=== PATIENT | female | born 1960 | race Caucasian/White ===

== ENCOUNTER → 2020-03-03 | Day surgery (SDC) | payer OTHER ==
[~2020-03-03] MED LIST: CANNABIS PO; ENDOMETRIN100 MG PO; ESTRADIOL PO; MIRALAX PO; NEURONTIN300 MG PO; PERCOCET 5-3251 EACH PO; RECTICARE30 GM TOP; VITAMIN B COMPLEX PO; VITAMIN C1000 M2 PO; VITAMIN D3 PO
== END | disposition home or self-care (01) ==
LOC: ADM 01-28 10:30 → CIR.AMB 02-04 08:15
PROVIDERS: ATTEND Surgery
DX: K60.1 Chronic anal fissure (principal); K62.0 Anal polyp; K64.8 Other hemorrhoids; Z20.828 Contact with and (suspected) exposure to other viral communicable diseases